=== PATIENT | female | born 1970 | race Caucasian/White ===

== ENCOUNTER 2021-02-11 07:42 | Emergency (ER) | payer SELFPAY ==
[~2021-02-11] VITALS: Ht 160 cm; Wt 63.5 kg
[2021-02-11 07:47] VITALS: BP 148/92
[2021-02-11] MEDS ORDERED: diazePAM 5 MG TAB PO ONE (08:05)
[2021-02-11] MEDS ORDERED: KETOROLAC 30 MG/ML VIAL IM ONE (08:05)
[2021-02-11] MEDS ORDERED: NAPR-54 PO (08:14)
[2021-02-11] MEDS ORDERED: DIAZ5TAB7 PO (08:14)
[2021-02-11 08:25] VITALS: BP 148/92
== END 2021-02-11 08:27 | disposition home or self-care (01) ==
LOC: MED 07:42
DX: M54.31 Sciatica, right side (principal); Z79.899 Other long term (current) drug therapy; Z98.890 Other specified postprocedural states
CPT/HCPCS: 96372; 99283; J1885

== ENCOUNTER 2021-04-07 08:40 | Emergency (ER) | payer MEDICAID ==
[~2021-04-07] VITALS: Ht 165.1 cm; Wt 77.6 kg
[~2021-04-07 08:40] MED LIST: DIAZ5TAB7 PO; NAPR-54 PO
[2021-04-07 09:02] VITALS: BP 135/88
--- NOTE | 2021-04-07 09:09 | NUR ---
Dr. Montalvo is evaluating patient in triage room.
[2021-04-07] MEDS ORDERED: ACYC-279 PO (09:16)
[2021-04-07] MEDS ORDERED: IBUP-2213 PO (09:16)
[2021-04-07] MEDS ORDERED: GABA100C PO (09:16)
[2021-04-07] MEDS ORDERED: LIDO1ADH47 TP (09:16)
--- NOTE | 2021-04-07 09:25 | NUR ---
Patient discharged with v/s stable. Written and verbal after care instructions given and explained. Patient alert, oriented and verbalized understanding of instructions. Ambulatory with steady gait. All questions addressed prior to discharge. ID band removed. Patient advised to follow up with PMD. Rx of Acyclovir, Babapentin, Ibuprofen and Lidocaine Patch given. Patient educated on indication of medication including possible reaction and side effects. Opportunity to ask questions provided and answered. Pt educated about avoiding contact with anyone to prevent transmission.
== END 2021-04-07 09:25 | disposition home or self-care (01) ==
LOC: MED 08:40
DX: B02.9 Zoster without complications (principal); Z79.899 Other long term (current) drug therapy
CPT/HCPCS: 99283